=== PATIENT | male | born 1970 | race Caucasian/White ===

== ENCOUNTER → 2025-08-06 | Day surgery (SDC) | payer OTHER ==
[~2025-08-06] VITALS: Ht 170.2 cm; Wt 86.8 kg
[~2025-08-06] MED LIST: LIDOCAINE 2% 100 MG/5 ML SDV (FOR ANES.) As Ordered ONE; LISI20TA33 PO
[2025-08-06 07:46] VITALS: TEMP 98.4
[2025-08-06 07:53] VITALS: BP 130/65; O2SAT 98
== END | disposition home or self-care (01) ==
LOC: M OPP 06:23
PROVIDERS: ATTEND Surgery
DX: Z12.11 Encounter for screening for malignant neoplasm of colon (principal); K63.5 Polyp of colon; K64.0 First degree hemorrhoids; K57.30 Diverticulosis of large intestine without perforation or abscess without bleeding; G47.33 Obstructive sleep apnea (adult) (pediatric); Z79.899 Other long term (current) drug therapy